=== PATIENT | female | born 1970 | race American Indian/Alaskan Native ===

== ENCOUNTER 2018-07-17 20:17 | Emergency (ER) | payer MEDICAID, OTHER ==
[2018-07-17 21:44] LABS: Basophils # (Auto) 0.1 K/mm3 (0.0-0.1); Basophils % (Auto) 0.7 % (0.0-1.8); Eosinophils # (Auto) 0.3 K/mm3 (0.0-0.4); Eosinophils % (Auto) 3.2 % (0.0-4.3); Hematocrit 31.2 % (30.3-42.9); Hemoglobin 10.8 gm/dl (10.1-14.3); Lymphocytes % (Auto) 21.8 % (13.4-35.0); Mean Corpuscular HGB Conc 35 % (30-34); Mean Corpuscular Volume 74 fl (79-97); Monocytes # (Auto) 0.5 K/mm3 (0.0-0.8); Monocytes % (Auto) 5.8 % (0.0-7.3); Platelet Count 447 K/mm3 (140-440); Red Blood Count 4.21 M/mm3 (3.65-5.03); Red Cell Distribution Width 16.6 % (13.2-15.2)
[2018-07-17 22:01] LABS: BUN/Creatinine Ratio 14; Blood Urea Nitrogen 10 mg/dL (7-17); Calcium 9.2 mg/dL (8.4-10.2); Hemolysis Index 1
[2018-07-17 22:04] LABS: Mean Corpuscular Hemoglobin 26 pg (28-32)
--- NOTE | 2018-07-17 22:33 | Emergency Department Report ---
ED General Adult HPI - General Chief complaint: Dizziness Stated complaint: HIGH BLOOD PRESSURE Time Seen by Provider: 07/17/18 22:29 Source: patient Mode of arrival: Ambulatory Limitations: No Limitations - History of Present Illness Initial comments: Patient c/o Dizziness and hypertension which she noticed today. Patient is not on any high blood pressure medication. She denies chest pain, shortness of breath or Syncope. -: Sudden Location: head Radiation: non-radiation Severity scale (0 -10): 0 Consistency: intermittent Improves with: none Worsens with: none Associated Symptoms: denies other symptoms Treatments Prior to Arrival: none - Related Data Previous Rx's Medication Instructions Recorded Last Taken Type Clonidine HCl [Kapvay] 0.1 mg PO BID #60 tab.er.12h 07/18/18 Unknown Rx Allergies Allergy/AdvReac Type Severity Reaction Status Date / Time codeine Allergy Vomiting Verified 07/17/18 21:07 ED Review of Systems ROS: Stated complaint: HIGH BLOOD PRESSURE Other details as noted in HPI Comment: All other systems reviewed and negative Constitutional: denies: chills, fever Eyes: denies: eye pain ENT: denies: ear pain Respiratory: denies: cough, orthopnea, shortness of breath Cardiovascular: denies: chest pain, palpitations, dyspnea on exertion, orthopnea , syncope Endocrine: no symptoms reported Gastrointestinal: denies: abdominal pain, nausea, vomiting, diarrhea, constipation Genitourinary: denies: urgency, dysuria, frequency Musculoskeletal: denies: back pain, joint swelling Skin: denies: rash, lesions Neurological: other (Dizziness). denies: headache, weakness, numbness, paresthesias, confusion, abnormal gait Psychiatric: denies: anxiety, depression Hematological/Lymphatic: denies: easy bleeding, easy bruising ED Past Medical Hx - Past Medical History Previous Medical History?: No - Surgical History Past Surgical History?: No - Social History Smoking Status: Never Smoker Substance Use Type: None - Medications Home Medications: Home Medications Medication Instructions Recorded Confirmed Last Taken Type Clonidine HCl [Kapvay] 0.1 mg PO BID #60 tab.er.12h 07/18/18 Unknown Rx ED Physical Exam - General Limitations: No Limitations General appearance: alert, in no apparent distress - Head Head exam: Present: atraumatic, normocephalic, normal inspection - Eye Eye exam: Present: normal appearance, PERRL, EOMI Pupils: Present: normal accommodation - ENT ENT exam: Present: normal exam, normal orophraynx, mucous membranes moist - Neck Neck exam: Present: normal inspection, full ROM. Absent: tenderness - Respiratory Respiratory exam: Present: normal lung sounds bilaterally. Absent: respiratory distress, wheezes, rales, rhonchi, stridor - Cardiovascular Cardiovascular Exam: Present: regular rate, normal rhythm, normal heart sounds - GI/Abdominal GI/Abdominal exam: Present: soft, normal bowel sounds. Absent: distended, tenderness, guarding, rebound, rigid - Extremities Exam Extremities exam: Present: normal inspection, full ROM, normal capillary refill. Absent: tenderness - Back Exam Back exam: Present: normal inspection, full ROM. Absent: tenderness - Neurological Exam Neurological exam: Present: alert, oriented X3, CN II-XII intact - Psychiatric Psychiatric exam: Present: normal affect, normal mood - Skin Skin exam: Present: warm, dry, intact, normal color. Absent: rash ED Course Vital Signs 07/17/18 07/17/18 20:28 22:45 Temperature 98.3 F Pulse Rate 73 Respiratory 18 Rate Blood Pressure 178/97 O2 Sat by Pulse 100 68 L Oximetry ED Medical Decision Making - Lab Data Result diagrams: 07/17/18 21:29 07/17/18 21:29 Lab Results 07/17/18 07/17/18 Range/Units 21:29 21:29 WBC 9.1 (4.5-11.0) K/mm3 RBC 4.21 (3.65-5.03) M/mm3 Hgb 10.8 (10.1-14.3) gm/dl Hct 31.2 (30.3-42.9) % MCV 74 L (79-97) fl MCH 26 L (28-32) pg MCHC 35 H (30-34) % RDW 16.6 H (13.2-15.2) % Plt Count 447 H (140-440) K/mm3 Lymph % (Auto) 21.8 (13.4-35.0) % [place] % (Auto) 5.8 (0.0-7.3) % Eos % (Auto) 3.2 (0.0-4.3) % Baso % (Auto) 0.7 (0.0-1.8) % Lymph # 2.0 (1.2-5.4) K/mm3 [place] # 0.5 (0.0-0.8) K/mm3 Eos # 0.3 (0.0-0.4) K/mm3 Baso # 0.1 (0.0-0.1) K/mm3 Seg Neutrophils % 68.5 (40.0-70.0) % Seg Neutrophils # 6.2 (1.8-7.7) K/mm3 Sodium 141 (137-145) mmol/L Potassium 3.6 (3.6-5.0) mmol/L Chloride 102.1 (98-107) mmol/L Carbon Dioxide 27 (22-30) mmol/L Anion Gap 16 mmol/L BUN 10 (7-17) mg/dL Creatinine 0.7 (0.7-1.2) mg/dL Estimated GFR > 60 ml/min BUN/Creatinine Ratio 14 % Glucose 91 (65-100) mg/dL Calcium 9.2 (8.4-10.2) mg/dL - EKG Data -: EKG Interpreted by In EKG shows normal: sinus rhythm Rate: normal (72) - EKG Data When compared to previous EKG there are: previous EKG unavailable Interpretation: normal EKG 07/17/18 22:33 No STEMI. - Radiology Data Radiology results: report reviewed, image reviewed CT head is negative. - Medical Decision Making Hypertension. Critical care attestation.: If time is entered above; I have spent that time in minutes in the direct care of this critically ill patient, excluding procedure time. ED Disposition Clinical Impression: Dizziness Hypertension Qualifiers: Hypertension type: unspecified Qualified Code(s): I10 - Essential (primary) hypertension Disposition: - TO HOME OR SELFCARE Is pt being admited?: No Does the pt Need Aspirin: No Condition: Stable Instructions: Hypertension (ED), Dizziness (ED) Additional Instructions: Follow up with your regular doctor or Dr Cazares on Friday morning. Return to the ED if your condition worsens. Prescriptions: Clonidine HCl [Kapvay] 0.1 mg PO BID #60 tab.er.12h Referrals: PRIMARY CARE, [Primary Care Provider] - 3-5 Days Time of Disposition: 00:12
[2018-07-17] MEDS ORDERED: CATAPRES PO ONE (22:48)
[2018-07-17 23:43] LABS: HCG Qualitative,Urine Negative (Negative)
[2018-07-17 23:56] LABS: Bilirubin,Urine NEG (Negative); Blood,Urine LG (Negative); Color,Urine Yellow (Yellow); Mucus,Urine FEW /HPF; Protein,Urine <15 mg/dL mg/dL (Negative); Urobilinogen,Urine < 2.0 mg/dL (<2.0)
--- NOTE | 2018-07-18 00:36 | Cat Scan Report ---
FINAL REPORT PROCEDURE: CT HEAD/BRAIN WO CON TECHNIQUE: Computerized tomography of the head was performed without contrast material. HISTORY: Dizziness COMPARISON: No prior studies are available for comparison. FINDINGS: Brain: Brain density appears normal. No evidence of intracranial hemorrhage. No parenchymal hemorrhage, mass lesions or mass effect are seen. No abnormal extraxial fluid collects or masses are seen. Ventricles: Ventricles are normal size and are midline. Bone Windows: No evidence of skull fracture. Paranasal sinuses: Visualized portions are clear. Mastoid air cells: Clear IMPRESSION: Negative examination
[2018-07-18 01:09] VITALS: BP 107/65
== END 2018-07-18 01:09 | disposition home or self-care (01) ==
LOC: ED 20:17
DX: R42 Dizziness and giddiness (principal); I10 Essential (primary) hypertension; Z88.4 Allergy status to anesthetic agent
CPT/HCPCS: 36415; 70450; 80048; 81001; 81025; 85025; 93005; 93010

== ENCOUNTER 2019-05-05 10:51 | Outpatient (CLI) | payer MEDICAID ==
--- NOTE | 2019-05-05 12:53 | Ultrasound Report ---
RIGHT DIGITAL DIAGNOSTIC MAMMOGRAM WITH CAD AND RIGHT BREAST ULTRASOUND HISTORY: A right palpable breast lump. She had a surgical breast left in September 2018 and a palpable right breast lump was noted on a recent clinical breast exam. The patient had not noticed it. COMPARISON: 07/01/2018 FINDINGS: Right Breast Mammogram: Digital CC and MLO views demonstrate a predominantly fatty breast parenchyma l pattern. Numerous benign coil cysts and numerous scattered benign calcifications. Outer surgical c lips. A poorly marginated lower inner posterior mixed density mass correlates with the palpable lump. It measures 4 x 2.2 x 2.4 cm and contains a number of small fat density cysts. No other mass and no architectural distortion or suspicious calcifications. Right Breast Ultrasound: Sonographic evaluation of of the palpable lump in the lower inner breast de monstrates a heterogeneous hypoechoic solid mass with irregular margins and some shadowing at 3:30 o' clock 9 cm from the nipple. It measures approximately 3.0 x 2.8 x 1.4 cm and correlates with the mamm ographic mass. IMPRESSION A probably benign 3 cm right breast mass at 3:30 o'clock 9 cm from the nipple. Mammographic and sonog raphic characteristics suggest benign fat necrosis. Recommend short-term (3 month) follow-up right mammogram and right breast ultrasound. BIRADS 3: Probably benign. According to the [employer], yearly mammograms are recommended starting at age 40 and continuing as long as a woman is in good health. Clinical Breast Exams should be part of a period ic health exam-about every 3 years for women in their 20s and 30s and every year for women 40 and ove r. Breast self exam is an option for women starting in their 20s. Any breast change noted on a breast self exam should be reported promptly to the patient's healthcare provider. Breast MRI is recommende d for women with an approximately 20-25% or greater lifetime risk of breast cancer, including women w ith a strong family history of breast or ovarian cancer and women who have been treated for Hodgkin's disease. A negative Mammography report should not discourage follow up or biopsy of a clinically significant f inding and/or abnormality. Dense breast tissue may obscure small neoplasms. Signer Name: Issac Aleman MD Signed: 05/05/2019 12:48 PM Workstation Name: [id number]
== END 2019-05-05 10:52 | disposition home or self-care (01) ==
LOC: SPVWC 10:51
PROVIDERS: ATTEND Obstetrics & Gynecology
DX: N60.01 Solitary cyst of right breast (principal)

== ENCOUNTER 2020-01-10 10:52 | Emergency (ER) | payer MEDICAID ==
[2020-01-10 12:48] VITALS: BP 164/96
--- NOTE | 2020-01-10 12:48 | Emergency Department Report ---
Chief Complaint: Skin/Abscess/Foreign Body Stated Complaint: ARM PIT BIT BY SOMETHING Time Seen by Provider: 01/10/20 12:42 - HPI History of Present Illness: 49yo F states that she was bit a bug 1 day ago; bitten underneath her armpit and L side of her neck. She further states that she felt a sensation in her L ear. She denies pain. - ROS Review of Systems: All reviewed and WNL except Ears-see HPI - Exam Vital Signs: Vitals reviewed and WNL. Physical Exam: General-WNL HEENT-WNL Neck-WNL Lungs- WNL Heart- WNL Abdomen-WNL MS-WNL Pscyh-WNL Neuro-WNL MSE screening note: Focused history and physical exam performed. Due to findings the following was ordered: Pt was MSE screened out. She was explained that there was not a foreign body in her L ear; L side of neck and L axillary space were WNL. She was instructed to f/u with her PCP in 2-3 days and see ER as needed. ED Disposition for MSE Condition: Stable Referrals: PRIMARY CARE, [Primary Care Provider] - 3-5 Days
== END 2020-01-10 13:18 | disposition left against medical advice (07) ==
LOC: ED 10:52
DX: S40.862A Insect bite (nonvenomous) of left upper arm, initial encounter (principal); Z53.21 Procedure and treatment not carried out due to patient leaving prior to being seen by health care provider; X58.XXXA Exposure to other specified factors, initial encounter; Y93.89 Activity, other specified; Y92.89 Other specified places as the place of occurrence of the external cause; Y99.8 Other external cause status